=== PATIENT | female | born 1960 | race Caucasian/White ===

== ENCOUNTER → 2023-08-23 | Emergency (ER) | payer OTHER ==
[~2023-08-23] MED LIST: CLINDAMYCIN 900MG/D5W 900 MG/50 ML IVPB IV ONE; INSULIN REGULAR (HUMAN) 100 UNIT/ML ONE; MUPIROCIN 2% OINT 22GM TUBE TOP ONE; NA CHLORIDE 0.9% 500 ML ONE
[2023-08-23 16:40] LABS: Absolute Lymphocytes (CBC) 1.8 K/uL (0.7-4.9); Hematocrit 36.5 % (36.0-45.0); Lymphocytes % 25.6 % (15.3-44.8); MCV 85.1 fL (80-100); MPV 8.8 fL (7.6-11.3); Platelets 300 thou/uL (152-406); RBC Red Blood Cell Count 4.29 M/uL (3.86-4.86)
[2023-08-23 16:51] LABS: Albumin 3.3 g/dL (3.4-5.0); Bilirubin Total 0.2 mg/dL (0.2-1.0); Potassium 3.7 mEq/L (3.5-5.1); Protein, Total 7.3 g/dL (6.4-8.2)
--- NOTE | 2023-08-23 17:05 | RAD REPORT ---
EXAM DESCRIPTION: RAD - Tib Fib Right - 08/23/2023 4:58 pm CLINICAL HISTORY: anterior lower leg wound COMPARISON: No comparisons FINDINGS: No fracture, dislocation or soft tissue gas. No evidence of osteomyelitis.
--- NOTE | 2023-08-23 18:49 | ER ---
Nurse's Notes [facility] Name: Joelle Lindsey Age: 62 yrs Sex: Female : 1960 Arrival Date: 08/23/2023 Time: 15:42 Bed 15 Private MD: Diagnosis: Leg Laceration/ Open wound of lower leg-right lower leg;Cellulitis of right lower limb Presentation: 08/23 15:59 Chief complaint: Worsening wound on right lower leg x 2 months. Coronavirus screen: At this time, the client does not indicate any symptoms associated with coronavirus-19. Ebola Screen: No symptoms or risks identified at this time. Initial Sepsis Screen: Does the patient meet any 2 criteria? No. Patient's initial sepsis screen is negative. Does the patient have a suspected source of infection? No. Patient's initial sepsis screen is negative. Risk Assessment: Do you want to hurt yourself or someone else? Patient reports no desire to harm self or others. Onset of symptoms was May 2024. 15:59 Method Of Arrival: Ambulatory hb 15:59 Acuity: MARJAN 3 hb Historical: - Allergies: 16:01 No Known Allergies; hb - Home Meds: 16:04 escitalopram oxalate 20 mg oral tablet daily [Active]; doxycycline hyclate 50 mg oral hb capsule 2 times per day [Active]; metformin 1,000 mg oral Tablet, Extended Release 24 hr 2 times per day [Active]; Bactrim DS 800-160 mg Oral tablet 2 times per day [Active]; clonazepam 0.5 mg Oral tablet 2 times per day [Active]; simvastatin 20 mg Oral tablet daily [Active]; Potassium Chloride Oral [Active]; aspirin 81 mg Oral tablet,chewable [Active]; Toujeo Max U-300 SoloStar 300 unit/mL (3 mL) subcutaneous Insulin Pen 60 units [Active]; - PMHx: 16:04 Diabetes mellitus; hb - Immunization history:: Adult Immunizations up to date. - Social history:: Smoking status: Patient denies any tobacco usage or history of. Screenin:07 [facility] ED Fall Risk Assessment (Adult) History of falling in the last 3 months, me1 including since admission No falls in past 3 months (0 pts) Confusion or Disorientation No (0 pts) Intoxicated or Sedated No (0 pts) Impaired Gait No (0 pts) Mobility Assist Device Used No (0 pt) Altered Elimination No (0 pt) Score/Fall Risk Level 0 - 2 = Low Risk Maintained a safe environment, Provided non-skid footwear, Hourly rounding (assess needs \T\ fall precautionary measures) done. Abuse screen: Denies threats or abuse. Nutritional screening: No deficits noted. Tuberculosis screening: No symptoms or risk factors identified. Assessment: 16:07 General: Appears comfortable, well groomed, well developed, well nourished, Behavior is me1 calm, cooperative, appropriate for age, Reports Worsening wound on right lower leg x 2 months. Pain: Denies pain. Neuro: Level of Consciousness is awake, alert, obeys commands, Oriented to person, place, time, situation, Appropriate for age. Cardiovascular: Capillary refill < 3 seconds Patient's skin is warm and dry. Respiratory: Airway is patent Respiratory effort is even, unlabored, Respiratory pattern is regular, symmetrical. Derm: Wound noted right cat. Vital Signs: 15:59 BP 156 / 73; Pulse 80; Resp 16; Temp 99.1(O); Pulse Ox 96% on R/A; Weight 83.91 kg; hb Height 5 ft. 8 in. ; Pain 0/10; 16:30 BP 129 / 63; Pulse 72; Resp 16; Pulse Ox 96% on R/A; me1 17:00 BP 120 / 60; Pulse 67; Resp 18; Pulse Ox 96% on R/A; me1 18:00 BP 123 / 66; Pulse 69; Resp 20; Pulse Ox 98% ; me1 18:45 BP 128 / 67; Pulse 67; Resp 16; Pulse Ox 97% on R/A; me1 15:59 Body Mass Index 28.13 (83.91 kg, 172.72 cm) hb 15:59 Pain Scale: Adult hb ED Course: 15:45 Patient arrived in ED. mr 15:52 Bud Katz PA is PHCP. cp 15:52 Jaciel Nair MD is Attending Physician. cp 15:53 Genevieve Wbester, PERLA is Primary Nurse. me1 16:01 Triage completed. hb 16:07 Arm band placed on. hb 16:07 Patient has correct armband on for positive identification. Placed in gown. Call light me1 in reach. Side rails up X 1. Provided Education on: POC. Verbalized understanding. . 16:07 No provider procedures requiring assistance completed. me1 16:27 CMP Sent. jg11 16:27 CBC with Diff Sent. jg11 16:27 Initial lab(s) drawn, by me, sent to lab. Inserted saline lock: 22 gauge in right jg11 antecubital area, using aseptic technique. Blood collected. 17:00 XRAY Tib Fib RIGHT In Process Unspecified. EDMS 18:47 Charles Navarro MD is Referral Physician. cp 18:59 IV discontinued, intact, bleeding controlled, No redness/swelling at site. Pressure me1 dressing applied. Administered Medications: 17:29 Drug: Insulin Regular Human IVP 10 units IVP once {Co-Signature: bp (Evaristo Jules ak1 RN).} Route: IVP; Site: right antecubital; 18:31 Follow up: Response: No adverse reaction me1 17:30 Drug: NS 0.9% IV 500 ml IV at bolus once Route: IV; Rate: bolus; Site: right me1 antecubital; 18:31 Follow up: IV Status: Completed infusion; IV Intake: 500ml me1 17:30 Drug: Clindamycin IVPB 900 mg IVPB once over 30 mins; (mix in 50 mL) Route: IVPB; me1 Infused Over: 30 mins; Site: right antecubital; 18:31 Follow up: Response: No adverse reaction; IV Status: Completed infusion me1 18:38 Drug: Mupirocin Topical Ointment 2 % 1 application Topical once {Note: right cat.} me1 Route: Topical; Site: wound; 18:56 Follow up: Response: No adverse reaction me1 Medication: 16:07 VIS not applicable for this client. me1 Point of Care Testing: Blood Glucose: 18:34 Blood Glucose: 209 mg/dL; me1 Ranges: Intake: 18:31 IV: 500ml; Total: 500ml. me1 Outcome: 18:48 Discharge ordered by . cp 18:59 Discharged to home ambulatory, with friend, me1 18:59 Condition: stable 18:59 Discharge instructions given to patient, friend, Instructed on discharge instructions, follow up and referral plans. medication usage, Demonstrated understanding of instructions, follow-up care, medications, Prescriptions given X 1, 19:00 Patient left the ED. me1 Signatures: Dispatcher [employer] EDMS Jasmyne Garnica, Reg Reg mr Bud Katz PA PA cp Baxter, Heather RN RN Genevieve Webster RN RN me1 Jeevan Chen jg11 Evaristo Jules RN bp Corrections: (The following items were deleted from the chart) 16:07 15:59 Chief complaint: Worsening wound on right lower leg x 2 months. [facility]
--- NOTE | 2023-08-23 18:49 | EDPHYS ---
Physician Documentation [facility] Name: Joelle Lindsey Age: 62 yrs Sex: Female : 1960 Arrival Date: 08/23/2023 Time: 15:42 Bed 15 Private MD: ED Physician Jaciel Nair HPI: 08/23 16:15 This 62 yrs old Female presents to ER via Ambulatory with complaints of Wound Infection.cp 16:15 Patient is a 62-year-old female with past medical history significant for diabetes cp mellitus who presents to the emergency department for evaluation of a persistent right lower leg wound that started about 1 to 2 months ago. Patient is unsure of exactly how the wound occurred but has followed up with her PCP who is currently has patient on oral Bactrim. Patient denies fevers, chills. Patient denies pain at the site. Historical: - Allergies: 16:01 No Known Allergies; hb - Home Meds: 16:04 escitalopram oxalate 20 mg oral tablet daily [Active]; doxycycline hyclate 50 mg oral hb capsule 2 times per day [Active]; metformin 1,000 mg oral Tablet, Extended Release 24 hr 2 times per day [Active]; Bactrim DS 800-160 mg Oral tablet 2 times per day [Active]; clonazepam 0.5 mg Oral tablet 2 times per day [Active]; simvastatin 20 mg Oral tablet daily [Active]; Potassium Chloride Oral [Active]; aspirin 81 mg Oral tablet,chewable [Active]; Toujeo Max U-300 SoloStar 300 unit/mL (3 mL) subcutaneous Insulin Pen 60 units [Active]; - PMHx: 16:04 Diabetes mellitus; hb - Immunization history:: Adult Immunizations up to date. - Social history:: Smoking status: Patient denies any tobacco usage or history of. ROS: 16:20 Constitutional: Negative for body aches, chills, fever, poor PO intake, cp 16:20 Cardiovascular: Negative for chest pain, 16:20 Respiratory: Negative for cough, shortness of breath, wheezing, 16:20 Abdomen/GI: Negative for abdominal pain, nausea, vomiting, and diarrhea, 16:20 Skin: Positive for of the right cat, open wound, 16:20 All other systems are negative, Exam: 16:30 Head/Face: Normocephalic, atraumatic. cp 16:30 Constitutional: The patient appears in no acute distress, alert, awake, non-diaphoretic, non-toxic, well developed, well nourished, overweight 16:30 Eyes: Periorbital structures: appear normal, Conjunctiva: normal, no exudate, no injection, Lids and lashes: appear normal, bilaterally, 16:30 ENT: External ear(s): are unremarkable, Nose: is normal, Mouth: Lips: moist, Oral mucosa: moist, Posterior pharynx: Airway: no evidence of obstruction, patent, 16:30 Chest/axilla: Inspection: normal, 16:30 Cardiovascular: Rate: normal, Rhythm: regular, 16:30 Respiratory: the patient does not display signs of respiratory distress, Respirations: normal, no use of accessory muscles, no retractions, Breath sounds: are clear throughout, no decreased breath sounds, no stridor, no wheezing, 16:30 Abdomen/GI: Exam negative for discomfort, distension, guarding, Inspection: abdomen cp appears normal, 16:30 Musculoskeletal/extremity: Extremities: noted in the right cat: There is a silver dollar size wound that extends to the dermal layer of the skin with a mild greenish color exudate and a minimal area of surrounding erythema. No tenderness to palpation noted and no purulent exudate, Pulses: noted to be 2+ in the right dorsalis pedis artery and left dorsalis pedis artery, 16:30 Neuro: Orientation: to person, place \T\ time. Mentation: is normal, Vital Signs: 15:59 BP 156 / 73; Pulse 80; Resp 16; Temp 99.1(O); Pulse Ox 96% on R/A; Weight 83.91 kg; hb Height 5 ft. 8 in. ; Pain 0/10; 16:30 BP 129 / 63; Pulse 72; Resp 16; Pulse Ox 96% on R/A; me1 17:00 BP 120 / 60; Pulse 67; Resp 18; Pulse Ox 96% on R/A; me1 18:00 BP 123 / 66; Pulse 69; Resp 20; Pulse Ox 98% ; me1 18:45 BP 128 / 67; Pulse 67; Resp 16; Pulse Ox 97% on R/A; me1 15:59 Body Mass Index 28.13 (83.91 kg, 172.72 cm) hb 15:59 Pain Scale: Adult hb MDM: 15:52 Patient medically screened. cp 18:47 Data reviewed: vital signs, nurses notes, lab test result(s), radiologic studies, plain cp films, and as a result, I will discharge patient. 18:47 Consideration of Admission/Observation Escalation of care including cp admission/observation considered. I considered the following discharge prescriptions or medication management in the emergency department Medications were administered in the Emergency Department. See MAR. Care significantly affected by the following chronic conditions: Diabetes. Counseling: I had a detailed discussion with the patient and/or guardian regarding the historical points, exam findings, and any diagnostic results supporting the discharge/admit diagnosis, lab results, radiology results, the need for outpatient follow up, for definitive care, a general surgeon, wound care, to return to the emergency department if symptoms worsen or persist or if there are any questions or concerns that arise at home. Response to treatment: the patient's symptoms have mildly improved after treatment, and as a result, I will discharge patient. 08/23 16:12 Order name: CBC with Diff; Complete Time: 16:56 cp 08/23 16:12 Order name: CMP; Complete Time: 16:56 cp 08/23 18:46 Order name: Glucose, Ancillary Testing EDMS 08/23 16:12 Order name: XRAY Tib Fib RIGHT; Complete Time: 17:22 cp 08/23 16:12 Order name: IV; Complete Time: 16:27 cp 08/23 17:22 Order name: Wound dressing; Complete Time: 18:39 cp 08/23 18:11 Order name: Accucheck Blood Glucose; Complete Time: 18:34 cp Administered Medications: 17:29 Drug: Insulin Regular Human IVP 10 units IVP once {Co-Signature: bp (Evaristo Jules RN).} Route: IVP; Site: right antecubital; 18:31 Follow up: Response: No adverse reaction me1 17:30 Drug: NS 0.9% IV 500 ml IV at bolus once Route: IV; Rate: bolus; Site: right me1 antecubital; 18:31 Follow up: IV Status: Completed infusion; IV Intake: 500ml me1 17:30 Drug: Clindamycin IVPB 900 mg IVPB once over 30 mins; (mix in 50 mL) Route: IVPB; me1 Infused Over: 30 mins; Site: right antecubital; 18:31 Follow up: Response: No adverse reaction; IV Status: Completed infusion me1 18:38 Drug: Mupirocin Topical Ointment 2 % 1 application Topical once {Note: right cat.} me1 Route: Topical; Site: wound; 18:56 Follow up: Response: No adverse reaction me1 Point of Care Testing: Blood Glucose: 18:34 Blood Glucose: 209 mg/dL; me1 Ranges: Critical Glucose Levels:Adult <50 mg/dl or >400 mg/dl <40 mg/dl or >180 mg/dl Disposition Summary: 08/23/23 18:48 Discharge Ordered Notes: Location: Home cp Problem: an ongoing problem cp Symptoms: have improved cp Condition: Stable cp Diagnosis - Leg Laceration/ Open wound of lower leg - right lower leg cp - Cellulitis of right lower limb cp Followup: cp - With: Charles Navarro MD - When: 2 - 3 days - Reason: Wound Recheck, wound care clinic Discharge Instructions: - Discharge Summary Sheet cp - Cellulitis, Adult cp - Wound Infection cp - Wound Care, Adult cp Forms: - Medication Reconciliation Form cp - Thank You Letter cp - Antibiotic Education cp - Prescription Opioid Use cp - Patient Portal Instructions cp - Leadership Thank You Letter cp Prescriptions: - Clindamycin HCl 300 mg Oral Capsule - take 1 capsule ORAL route every 6 hours for 10 days; 40 capsule; Refills: 0, cp Product Selection Permitted Addendum: 08/27/2023 02:49 Co-signature as Attending Physician, Jaciel aNir MD I agree with the assessment s p4 and plan of care. I reviewed the patient's care provided by the Advanced Practice Provider and agree with the diagnosis and treatment plan. Signatures: Dispatcher [employer] EDMS Bud Katz PA PA cp Gay Irvin RN RN Jaciel Nair MD MD sp4 Genevieve Webster RN RN me1 Evaristo Jules RN bp Corrections: (The following items were deleted from the chart) 08/24 17:24 17:22 Skin: Positive for of the right cat, open wound, cp cp 17:24 17:22 Constitutional: Negative for body aches, chills, fever, poor PO intake, cp cp 17:24 17:22 Cardiovascular: Negative for chest pain, cp cp 17:24 17:22 Respiratory: Negative for cough, shortness of breath, wheezing, cp cp 17:24 17:22 Abdomen/GI: Negative for abdominal pain, nausea, vomiting, and diarrhea, cp cp 17:24 17:22 All other systems are negative, cp cp
[2023-08-23 20:53] VITALS: BP 128/67; TEMP 99.1; O2SAT 97
== END ==
LOC: ER 15:42
DX: L03.115 Cellulitis of right lower limb (principal); E11.9 Type 2 diabetes mellitus without complications; Z79.4 Long term (current) use of insulin
CPT/HCPCS: 85025; 36415; 82947; 80053; 73590; J1815; J7040